=== PATIENT | male | born 1995 | race Caucasian/White ===

== ENCOUNTER 2019-10-03 21:44 | Emergency (ER) | payer OTHER ==
[~2019-10-03] VITALS: Ht 185.4 cm; Wt 104.3 kg
[2019-10-03] MEDS ORDERED: SULFACETAMIDE 115 M1 TOP (22:47)
[2019-10-03] MEDS ORDERED: LORCET 5-325 M1 EACH PO (22:48)
[2019-10-03 23:03] VITALS: BP 124/70
== END 2019-10-03 23:03 | disposition home or self-care (01) ==
LOC: M.ERS 21:44
DX: H57.12 Ocular pain, left eye (principal); Z88.1 Allergy status to other antibiotic agents